=== PATIENT | female | born 1990 | race Caucasian/White ===

== ENCOUNTER 2017-01-15 00:19 | Emergency (ER) | payer MEDICAID ==
[~2017-01-15] VITALS: Ht 162.6 cm; Wt 127.0 kg
[~2017-01-15 00:19] MED LIST: IBUP800T25 PO
[2017-01-15 00:26] VITALS: Ht 162.6 cm; Wt 127.0 kg
[2017-01-15] MEDS ORDERED: ERYTOPOI RIGHT EYE (02:01)
--- NOTE | 2017-01-15 20:43 | ERD ---
ER Documentation Chief Complaint Date/Time DATE: 01/15/17 TIME: 16:49 Chief Complaint R eye redness for 3 days with itching HPI This is a 26 year old female presenting to ER with right eye redness and discharge. Patient states she has white discharge from her right eye and pruritus. No fevers or chills. No blurry vision, loss of vision, change of vision, veil or curtain coming down over eye. No eye pain or headache. No cough, shortness of breath, difficulty breathing, rhinitis, rhinorrhea, sore throat or difficulty swallowing. ROS All systems reviewed and are negative except as per history of present illness. Medications Home Meds Active Scripts Erythromycin* (Erythromycin* Ophthalmic) 1 Applic Oint, 1 APPLIC RIGHT EYE QID for 7 Days Prov:KEITH KWON NP 01/15/17 Ibuprofen* (Motrin*) 800 Mg Tab, 800 MG PO Q6H Y for PAIN AND OR ELEVATED TEMP, #30 TAB Prov:PIERRE BURRELL MD 01/13/15 Allergies Allergies: Coded Allergies: No Known Allergy (Unverified , 01/13/15) PMhx/Soc Medical and Surgical Hx: pt denies Medical Hx, pt denies Surgical Hx History of Surgery: No Anesthesia Reaction: No Hx Neurological Disorder: No Hx Respiratory Disorders: No Hx Cardiac Disorders: No Hx Psychiatric Problems: No Hx Miscellaneous Medical Probl: No Hx Alcohol Use: No Hx Substance Use: No Hx Tobacco Use: No Smoking Status: Never smoker Physical Exam Vitals Vital Signs Date Time Temp Pulse Resp B/P Pulse Ox O2 Delivery O2 Flow Rate FiO2 01/15/17 00:26 99.5 94 24 135/79 97 Physical Exam Const: No acute distress, alert Head: Atraumatic Eyes: Erythema to Conjunctiva. white discharge. no photophobia. ENT: Normal External Ears, Nose and Mouth. Neck: Full range of motion..~ No meningismus. Resp: Clear to auscultation bilaterally Cardio: Regular rate and rhythm, no murmurs Abd: Soft, non tender, non distended. Normal bowel sounds Skin: No petechiae or rashes Back: No midline or flank tenderness Ext: No cyanosis, or edema Neur: Awake and alert Psych: Normal Mood and Affect Procedures/MDM MDM: 26 year old female presents to ER with right eye redness, discharge and pruritus x 3 days. Patient has erythematous conjunctiva with white discharge from right eye. No subconjunctival hemorrhage or erythema. No tenderness to palpation. No fevers or chills. No limitation of EOMs on physical exam. No change in vision, loss of vision, blurry vision, floaters, halos around lights, veil or curtain coming down over eye. Denies photophobia, diplopia or headache. No foreign body sensation to eye. No nasal congestion, sinusitis, cough, shortness breath or difficulty breathing. No facial lesions or rash.There is no pain with eye movement and no proptosis therefore I have low suspicion for orbital cellulitis or periorbital abscess. No rash, burning or lesion therefore I have low suspicion for herpes zoster or varicella. No visual changes, photophobia or loss of vision so I have low suspicion for acute angle closure glaucoma or iritis. Differential diagnosis includes but not limited to periorbital cellulitis, allergic reaction, insect bite, blepharitis, bacterial conjunctivitis, viral conjunctivitis, allergic conjunctivitis, allergic reaction, blepharitis, hordeolum or chalazion. Low suspicion for orbital cellulitis, periorbital abscess, varicella, angle closure glaucoma or iritis. Patient is appropriate for outpatient management and will be given prescription for Erythromycin ointment. Follow up with PCP in the next 1 week for reassessment. Return to ED for any high fever, chest pain, difficulty breathing , shortness breath, wheezing, vomiting, diarrhea, abdominal pain or any new or worsening symptoms. Patient verbalizes understanding. All questions answered at discharge. Departure Diagnosis: Primary Impression: Conjunctivitis Acute conjunctivitis type: unspecified Laterality: right Condition: Stable Patient Instructions: Conjunctivitis Caused by Infection Ref[facility] Usted se mills hecho un examen mdico de control que le indica que no est en brittany condicin que requiera tratamiento urgente en el Departamento de Emergencia. Un estudio ms profundo y el tratamiento de bonilla condicin pueden esperar sin ningn riesgo hasta que usted sea atendida/o en el consultorio de bonilla mdico o brittany cl zhang. Es responsabilidad suya arreglar brittany arvin para el seguimiento del scott. MANEJO DE CONDICIONES NO URGENTES EN EL FUTURO 1) Si usted tiene un mdico de atencin primaria: Usted debera llamar a bonilla mdico de atencin primaria antes de venir al departamento de emergencia. Despus de las horas de consultorio, bonilla doctor o bonilla asociado/a est disponible por telfono. El mdico o enfermero de caleb en el servicio telefnico puede asesorarle por manny medio para atender el problema, o scott contrario se puede programar brittany arvin. 2) Si usted no tiene un mdico de atencin primaria: Llame al mdico o clnica de referencia que aparece abajo robyn las horas de consultorio para hacer brittany arvin para que le vean. CLINICAS: [place] [address] [phone] [facility] [phone] [facility] [phone] [address] [facility] [phone] [facility]. [place] [id number] [phone] [facility]. [phone] [address] [facility]. [facility] () Usted se mills hecho un examen mdico de control que le indica que no est en brittany condicin que requiera tratamiento urgente en el Departamento de Emergencia. Un estudio ms profundo y el tratamiento de bonilla condicin pueden esperar sin ningn riesgo hasta que usted sea atendida/o en el consultorio de bonilla mdico o brittany cl zhang. Es responsabilidad suya arreglar brittany arvin para el seguimiento del scott. MANEJO DE CONDICIONES NO URGENTES EN EL FUTURO 1) Si usted tiene un mdico de atencin primaria: Usted debera llamar a bonilla mdico de atencin primaria antes de venir al departamento de emergencia. Despus de las horas de consultorio, bonilla doctor o bonilla asociado/a est disponible por telfono. El mdico o enfermero de caleb en el servicio telefnico puede asesorarle por manny medio para atender el problema, o scott contrario se puede programar brittany arvin. 2) Si usted no tiene un mdico de atencin primaria: Llame al mdico o condado institucions de referencia que aparece abajo robyn las horas de consultorio para hacer brittany arvin para que le vean. SI USTED NO PUEDE PAGAR PARA LESTER UN MEDICO puede ir a: [facility] [id number] [place] [address] [facility] [address] [place] [address] [facility] [address] [place] [address] PAR[address] DANIELLE [facility] [address] [place], [place] [phone] Additional Instructions: Llame al doctor MAANA y paul brittany ARVIN PARA DENTRO DE 2-3 VASQUEZ.Dgale a la secretaria que nosotros le instruimos hacer esta arvin.Avise o llame si bonilla condicin se empeora antes de la arvin. Regresa aqui si peor o no mejor. Regresar a ED por fiebre sung, dolor en el pecho, dificultad para respirar, respiracin entrecortada, sibilancias, vmitos, diarrea, dolor abdominal o cualquier sntoma nuevo o que empeora. KEITH KWON NP Jan 15, 2017 16:54
== END 2017-01-15 02:30 | disposition home or self-care (01) ==
LOC: FTE 00:19
DX: H10.9 Unspecified conjunctivitis (principal)
CPT/HCPCS: 99283

== ENCOUNTER 2017-07-26 17:15 | Emergency (ER) | END 2017-07-26 19:22 | disposition home or self-care (01) ==